=== PATIENT | female | born 1970 | race Caucasian/White ===

== ENCOUNTER 2019-01-09 08:23 | Day surgery (SDC) | payer MEDICAID, OTHER ==
[2019-01-09] VITALS (15 sets, daily range): BP systolic 107–127; BP diastolic 56–65; PULSE 58–70; RESP 13–19; Ht 160 cm; Wt 73.0 kg
[~2019-01-09] VITALS: Ht 160 cm; Wt 73.0 kg
[2019-01-09] MEDS ORDERED: ASPI81TA52 PO (08:57)
--- NOTE | 2019-01-09 09:20 | HPN ---
Date/Time of Note Date/Time of Note DATE: 01/09/19 TIME: 09:20 Interval H&P Admission Note Pt. seen H&P reviewed: No system changes VERNON VILLEGAS MD Jan 09, 2019 09:20
--- NOTE | 2019-01-09 09:51 | PREAC ---
Date/Time of Note Date/Time of Note DATE: 01/09/19 TIME: 09:49 Anesthesia Eval and Record Evaluation Time Pre-Procedure Interview DATE: 01/09/19 TIME: 09:49 Age 48 Sex female NPO: 8 hrs Preoperative diagnosis Chronic Tonsillitis Planned procedure Tonsillectomy Past Medical History Past Medical History: None Surgery & Anesthesia Issues No known issue Meds Anticoagulation: No Beta Luis within 24 hr: No Reason Beta Luis not given: Pt. not on B-Luis Reported Medications Aspirin (Low Dose Aspirin) 81 Mg Tablet.dr, 81 MG PO DAILY, #30 TAB 01/09/19 Meds reviewed: Yes Allergies Coded Allergies: Penicillins (Verified Allergy, Unknown, 01/09/19) Allergies Reviewed: Yes Labs/Studies Labs Reviewed: Reviewed by anesthesiologist test: Negative Studies: ECG Pre-procedure Exam Last vitals Vital Signs Date Temp Pulse Resp B/P (MAP) Pulse Ox O2 O2 Flow FiO2 Time Delivery Rate 01/09/19 98.0 70 16 116/56 96 Room Air 09:23 (76) Airway: Adequate mouth opening, Adequate thyromental dist Mallampati: Mallampati II Teeth: Normal Lung: Normal Heart: Normal ASA Physical Status ASA physical status: 2 Emergency: None Planned Anesthetic General/MAC: ETT Planned Pain Management Parenteral pain med Pre-operative Attestations Prior to commencing anesthesia and surgery, the patient was re-evaluated, there was verification of: *The patient's identity *The results of appropriate recent lab work and preoperative vital signs *The above evaluation not changing prior to induction *Anesthetic plan, risk benefits, alternative and complications discussed with patient/family; questions answered; patient/family understands, accepts and wishes to proceed. LONDON MAR MD Jan 09, 2019 09:51
[2019-01-09] MEDS ORDERED: BUPIVACAINE 0.25% (MPF) 30 ML INJ ONE (11:12)
[2019-01-09] MEDS ORDERED: FENTAnyl 50 MCG/ML VIAL ONE (11:18)
[2019-01-09] MEDS ORDERED: MIDAZOLAM 1 MG/ML 2 ML INJ ONE (11:19)
--- NOTE | 2019-01-09 11:50 | SIPON ---
Date/Time of Note Date/Time of Note DATE: 01/09/19 TIME: 11:49 Operative Report Preoperative Diagnosis Chronic tonsillitis Postoperative Diagnosis Same Operation/Procedure Performed Tonsillectomy Surgeon see signature line it administrative assistant None Anesthesia: general Estimated blood loss: minimal Transfusion Required none Specimen Tonsils Grafts/Implants none Complications none VERNON VILLEGAS MD Jan 09, 2019 11:50
[2019-01-09] MEDS ORDERED: NEOSTIGMINE 3 MG/3 ML SYRINGE ONE ×2 (11:51)
[2019-01-09] MEDS ORDERED: GLYCOPYRROLATE 0.4 MG INJ ONE ×2 (11:51)
[2019-01-09] MEDS ORDERED: PROPOFOL 20 ML ONE (11:51)
[2019-01-09] MEDS ORDERED: ROCURONIUM 50 MG INJ ONE (11:51)
[2019-01-09] MEDS ORDERED: LIDOCAINE 2% (SDV) 5 ML INJ ONE (11:51)
[2019-01-09] MEDS ORDERED: ONDANSETRON 4 MG INJ ONE (11:52)
--- NOTE | 2019-01-09 11:52 | OPR ---
Date/Time of Note Date/Time of Note DATE: 01/09/19 TIME: 11:50 Operative Report Procedure Date: Jan 09, 2019 Preoperative Diagnosis Chronic tonsillitis Postoperative Diagnosis Same Operation/Procedure Performed Tonsillectomy Surgeon see signature line Artificial Cherry Maker None Anesthesia Type: general Estimated Blood Loss: minimal Transfusion none Specimen Tonsils Grafts/Implants none Complications none Pt Condition Post Procedure: stable Disposition: PACU Indications 48-year-old female with a history of chronic tonsillitis that has been refractory to medical management. The risks benefits alternatives surgery were discussed. The risks included but not limited to bleeding, infection, scar, need for further surgery, no improvement in symptoms, velopharyngeal insufficiency, and pain. She understood this and signed consent. Procedure Description After informed consent was obtained, the patient was brought back to operative room. She was intubated by anesthesia and sedated. The McIvor retractor was inserted into the oral cavity and suspended on the Jones stand. The right tonsil was retracted medially and a fine tip cautery was used to dissect the tonsil out from a superior to inferior fashion along the avascular plane until the tonsil was transected at its lingual base. Hemostasis was achieved with the bipolar cautery. Next the left tonsil was removed in the exact same fashion. Quarter percent Marcaine without epinephrine were injected into the tonsillar fossa's. The retractor was relaxed for 5 minutes and then reopened. No bleeding was encountered. The retractor was removed. The patient was handed over to anesthesia. The patient was x-rayed and brought to the recovery room in stable condition. VERNON VILLEGAS MD Jan 09, 2019 11:52
--- NOTE | 2019-01-09 12:14 | PAC ---
Date/Time of Note Date/Time of Note DATE: 01/09/19 TIME: 12:14 Post-Anesthesia Notes Post-Anesthesia Note Last documented vital signs Vital Signs Date Temp Pulse Resp B/P (MAP) Pulse Ox O2 O2 Flow FiO2 Time Delivery Rate 01/09/19 98.0 70 16 116/56 96 Room Air 09:23 (76) Activity: WNL Respiratory function: WNL Cardiovascular function: WNL Mental status: Baseline Pain reasonably controlled: Yes Hydration appropriate: Yes Nausea/Vomiting absent: Yes Comments BP:134/56, P:78, Spo2:100%, T:98,8 LONDON MAR MD Jan 09, 2019 12:14
[2019-01-09] MEDS ORDERED: HYDROmorphONE 1 MG/5 ML IV SYRINGE IV PRN ×2 (12:30)
[2019-01-09] MEDS ORDERED: ONDANSETRON 4 MG INJ IV PRN (12:30)
[2019-01-09] MEDS ORDERED: METOCLOPRAMIDE 10 MG INJ IV PRN (12:30)
[2019-01-09] MEDS ORDERED: MEPERIDINE 25 MG INJ IV PRN (12:30)
[2019-01-09] MEDS ORDERED: DIPHENHYDRAMINE 50 MG INJ IV PRN (12:30)
[2019-01-09] MEDS ORDERED: FENTAnyl 50 MCG/ML VIAL IV PRN (12:30)
[2019-01-09] MEDS ORDERED: OXYCODONE/ACETAMINOPHEN (5/325) TAB PO ONE (14:00)
== END 2019-01-09 14:17 | disposition home or self-care (01) ==
LOC: SDS 08:23
PROVIDERS: ATTEND Otolaryngology
DX: J35.01 Chronic tonsillitis (principal); E78.5 Hyperlipidemia, unspecified; E55.9 Vitamin D deficiency, unspecified; Z86.718 Personal history of other venous thrombosis and embolism; Z88.0 Allergy status to penicillin; Z79.82 Long term (current) use of aspirin
CPT/HCPCS: 42826; 88304; J2250; J2405; J2710; J3010; Z7512; Z7610